=== PATIENT | male | born 1950 | race Caucasian/White ===

== ENCOUNTER → 2023-11-20 11:40 | Outpatient (BNVA) | payer MEDICARE, SELFPAY | PROVIDERS: PCP Family Medicine; Visit Provider Specialist | DX: G60.3 Idiopathic progressive neuropathy (principal); R15.9 Full incontinence of feces; R29.90 Unspecified symptoms and signs involving the nervous system; R26.9 Unspecified abnormalities of gait and mobility; G25.0 Essential tremor | CPT/HCPCS: 99205 ==

== ENCOUNTER 2023-12-18 14:39 | Outpatient (CLI) | payer MEDICARE, SELFPAY ==
--- NOTE | 2023-12-18 15:15 | MR_ITS ---
WS: [id number] MRI CERVICAL SPINE NONCONTRAST TECHNIQUE: Sagittal T1, T2 and STIR imaging. Axial T2, gradient, and fiesta imaging. CLINICAL INFORMATION: R15.9 - Full incontinence of feces COMPARISON: None. FINDINGS: Straightening with slight reversal normal cervical lordosis. Cord signal is normal. No high-grade radha tral canal narrowing. Disc narrowing worse at C3-C4 and C4-C5. C2-C3: Mild facet arthropathy. Spinal canal and foramen are patent. C3-C4: Mild disc bulging with osteophytic ridging. Moderate facet arthropathy. Mild RIGHT greater aruna n LEFT bony foraminal narrowing. Mild facet arthropathy. C4-C5: Disc osteophyte complex with endplate ridging. Slight indentation cervical cord. Mild central canal stenosis. Mild RIGHT and no significant LEFT foraminal narrowing. Mild facet arthropathy. C5-C6: Disc osteophyte complex with endplate ridging. Severe LEFT and moderate RIGHT bony foraminal n arrowing. Uncovertebral joint hypertrophy. Mild facet arthropathy. C6-C7: Shallow LEFT paracentral disc protrusion with slight indentation of the cervical cord. Mild ce ntral canal stenosis. Moderate to severe LEFT and mild RIGHT bony foraminal narrowing. Mild facet art hropathy. C7-T1: Shallow central protrusion. Mild LEFT and no significant RIGHT foraminal narrowing. Mild facet arthropathy. Small shallow protrusions in the upper thoracic spine at T1-2 and T2-3. Normal paravertebral soft tissues. IMPRESSION: 1. Straightening with slight reversal normal cervical lordosis. 2. Cord signal is normal. 3. Mild central canal stenosis C3-C4 due to central disc osteophyte protrusion with slight indentati on of the cervical cord. 4. LEFT paracentral disc osteophyte protrusion C6-7 with slight indentation on the cervical cord and mild central canal stenosis. 5. Severe LEFT C5-C6 and moderate to severe LEFT C6-7 bony foraminal narrowing. 6. Moderate RIGHT C5-C6 bony foraminal narrowing. 7. Otherwise mild bony foraminal narrowing described above.
--- NOTE | 2023-12-18 16:00 | MR_ITS ---
WS: [id number] MRI THORACIC SPINE WITHOUT CONTRAST TECHNIQUE: Sagittal T1, T2 and STIR imaging. Axial T2 imaging. Noncontrast imaging obtained. CLINICAL INFORMATION: G62.9 - Polyneuropathy, unspecified COMPARISON: None. FINDINGS: Mild thoracic curve. Moderate thoracic kyphosis. No acute compression fractures. Chronic appearing an terior wedging in the midthoracic spine at T6-T8. Shallow central protrusions T1-2 and T2-3. Moderate facet arthropathy in the lower thoracic spine. Anterior hypertrophic changes thoracic spine. Minimal disc bulging T5-T8. Tiny annular fissure at T6-7. No high-grade central canal stenosis. Normal caliber thoracic aorta. Adrenal glands are normal. Small bilateral renal cysts. Normal paraver tebral soft tissues. IMPRESSION: 1. Mild thoracic curve with moderate thoracic kyphosis. No acute compression fractures. 2. Mild chronic anterior wedging in the midthoracic spine at T6-T8. No high-grade central canal sten osis. 3. Cord signal is normal. 4. Small central protrusions T1-2 and T2-3. Tiny central protrusions in the midthoracic spine at T5- T8. 5. Moderate facet arthropathy lower thoracic spine.
== END 2023-12-18 14:40 | disposition home or self-care (01) ==
LOC: RAD 14:41
PROVIDERS: PCP Family Medicine; Visit Provider Specialist
DX: R15.9 Full incontinence of feces (principal); G62.9 Polyneuropathy, unspecified; M40.294 Other kyphosis, thoracic region; M51.24 Other intervertebral disc displacement, thoracic region; M48.02 Spinal stenosis, cervical region; M50.223 Other cervical disc displacement at C6-C7 level
CPT/HCPCS: 72141; 72146

== ENCOUNTER → 2024-01-11 08:21 | Outpatient (BNVA) | payer MEDICARE, SELFPAY | PROVIDERS: PCP Family Medicine; Visit Provider Specialist | DX: R15.9 Full incontinence of feces (principal); G62.9 Polyneuropathy, unspecified; R29.90 Unspecified symptoms and signs involving the nervous system; G60.3 Idiopathic progressive neuropathy; G25.0 Essential tremor; R26.9 Unspecified abnormalities of gait and mobility | CPT/HCPCS: 99213 ==

== ENCOUNTER → 2024-07-01 12:54 | Outpatient (BNVA) | payer MEDICARE, SELFPAY | PROVIDERS: PCP Psychiatry & Neurology Neurology; Visit Provider Specialist | DX: R15.9 Full incontinence of feces (principal); G62.9 Polyneuropathy, unspecified; R29.90 Unspecified symptoms and signs involving the nervous system; G60.3 Idiopathic progressive neuropathy; G25.0 Essential tremor; R26.9 Unspecified abnormalities of gait and mobility | CPT/HCPCS: 99213; 99214 ==